=== PATIENT | male | born 1970 | race Caucasian/White ===

== ENCOUNTER 2016-10-09 09:14 | Inpatient (IN) | payer OTHER ==
--- NOTE | ~2016-10-09 | CR133 ---
[facility] A Service of [facility] RADIOLOGY TEXT RESULTS PATIENT: DARIO PERDOMO LOCATION: C3A 310-01 : 70 UNIT #: [id number] AGE: [address]: LAMAR SCHWAB MD SEX: M ORDER DR: [id number] [place] [id number] [facility]. [place], [place] [address] [id number] I MR#: [id number] Acc #: [id number] NAME: DARIO PERDOMO : 1970 SEX: M STUDY DATE/TIME: 10/09/2016 13:10 UNIT: CEDOF ROOM: 32536 STUDY DESCRIPTION: CR Forearm 2 View Rt Attending Physician: Lamar Schwab M.D. Ordering Physician: Ed Bright Albarran M.D. Primary Care Physician: No Primary Care Physician MEDICAL IMAGING REPORT This report is preliminary unless electronic signature is present EXAM Right forearm, 2 views. DATE OF EXAM 10/09/2016, 1310 hours. CLINICAL HISTORY Bilateral forearm swelling for 1 week with pain. No reported injury. COMPARISON None. FINDINGS AP and lateral views are performed. There is an angiocatheter at the right antecubital fossa with tubing overlying the forearm. The radius and ulna are normal. There is no fracture. There is diffuse subcutaneous edema throughout the visualized portions of the forearm extending into the dorsum of the hand. No foreign body seen. IMPRESSION Diffuse subcutaneous edema over the forearm and hand with no fracture or bone lesion. There is an angiocath at the right antecubital fossa with overlying tubing. No foreign body seen. Dictated by... Lacie Rowan M.D. THIS IS AN ELECTRONICALLY VERIFIED REPORT Lacie Rowan M.D. at 10/09/2016 7:09 PM Reji [facility] A Service of [facility] & [facility] RADIOLOGY TEXT RESULTS PATIENT: DARIO PERDOMO LOCATION: C3A 310-01 : 70 UNIT #: [id number] AGE: [address]: LAMAR SCHWAB MD SEX: M ORDER DR: TD: 10/09/2016 16:43 JOB #: [id number] MEDICAL IMAGING REPORT COPY
--- NOTE | ~2016-10-09 | DS ---
Unit #: [id number] #: [id number] Patient: DARIO PERDOMO [id number] [address] [place], [place] [address] [id number] I MR#: [id number] NAME: DARIO PERDOMO ROOM: 310 Age: 46 Sex: M Admission Date: 10/09/2016 : 1970 Discharge Date: 10/13/2016 Attending Physician: Janki Mondragon M.D. Primary Care Physician: Jocy Primary Care Physician DISCHARGE SUMMARY FINAL DIAGNOSIS Abscess to both forearms. CONSULT [facility]. PROCEDURE He had an I and D on 10/10/16 to bilateral wrist abscess. HOSPITAL COURSE The patient is a pleasant, 46-year-old male who basically presented with what looked abscesses to his forearms and was seen and evaluated and admitted to the ER. He had an I and D of bilateral upper extremities for wrist abscess. He was on antibiotics and vancomycin and wound culture so far grew MRSA. He was evaluated and suitable and stable for discharge and has been cleared for discharge by [facility]. MEDICATIONS ON DISCHARGE 1. Bactrim DS two tablets p.o. b.i.d. for 10 days. 2. Hydrocodone one tab p.o. every six hours p.r.n. pain. 3. Ibuprofen 600 mg p.o. q.6 hourly p.r.n. He is scheduled to follow with PCP in the next three to five days and scheduled to follow up with [facility] in about a week. He is to call the office for appointment, . Time spent coordinating discharge about 22 minutes. Dictated by... Tre Peterson/carmen TD: 10/14/2016 19:04 JOB #: [id number] Unit #: [id number] #: [id number] Patient: DARIO PERDOMO DISCHARGE SUMMARY X Magdaleno Reyez MD DISCHARGE SUMMARY
--- NOTE | ~2016-10-09 | CR132 ---
[facility] A Service of [facility] & [facility] RADIOLOGY TEXT RESULTS PATIENT: DARIO PERDOMO LOCATION: [facility] 310-01 : 70 UNIT #: [id number] AGE: [address]: LAMAR NIEVES MD SEX: M ORDER DR: [id number] [place] [id number] [facility]. [place], [place] [address] [id number] I MR#: [id number] Acc #: [id number] NAME: DARIO PERDOMO : 1970 SEX: M STUDY DATE/TIME: 10/09/2016 13:12 UNIT: [facility] ROOM: 91666 STUDY DESCRIPTION: CR Forearm 2 View Lt Attending Physician: Lamar Nieves M.D. Ordering Physician: Ed Doctor [id number] [facility] Primary Care Physician: Primary Care Physician No MEDICAL IMAGING REPORT This report is preliminary unless electronic signature is present EXAM Left forearm, 10/09/2016 13:12 hours HISTORY 46-year-old man with bilateral forearm pain and swelling. Symptoms for 1 week. No reported injury. COMPARISON None FINDINGS AP and lateral views of the left forearm demonstrate no fracture or bone lesion. There is subcutaneous edema seen distally more than proximally. This is less extensive than that seen in the right forearm. No foreign body. IMPRESSION Subcutaneous edema diffusely, slightly less than that seen on the right arm today. There is no abscess or soft tissue gas. No foreign body or fracture. Dictated by... Lacie Rowan M.D. THIS IS AN ELECTRONICALLY VERIFIED REPORT Lacie Rowan M.D. at 10/09/2016 7:09 PM CHACE/ava TD: 10/09/2016 16:28 JOB #: [id number] MEDICAL IMAGING REPORT COPY
--- NOTE | ~2016-10-09 | OR ---
Unit #: [id number] #: [id number] Patient: DARIO PERDOMO [id number] [address] [place], [place] [address] [id number] I MR#: [id number] NAME: DARIO PERDOMO ROOM: 310 Date of Procedure: 10/10/2016 Admission Date: 10/09/2016 Surgeon: Yuri Harden M.D. : 1970 Attending Physician: Janki Mondragon M.D. Primary Care Physician: Primary Care Physician No OPERATIVE REPORT PREOPERATIVE DIAGNOSIS Bilateral upper extremity wrist abscesses. POSTOPERATIVE DIAGNOSIS Bilateral upper extremity wrist abscesses. PROCEDURES PERFORMED 1. Sharp excisional debridement down to muscle fascia of right upper extremity abscess measuring 3 cm x 2 cm. 2. Sharp excisional debridement with a knife down to muscle fascia of left upper extremity abscess measuring 2 x 1 cm. ANESTHESIA General anesthesia. ESTIMATED BLOOD LOSS Minimal. IV FLUIDS 400 crystalloid. COMPLICATIONS None. INDICATIONS FOR PROCEDURE The patient is a 46-year-old, who presents with bilateral wrist abscesses secondary to IV drug abuse. He presents for excision. DESCRIPTION OF PROCEDURE The patient was taken to the operating theater, placed in a supine position. General anesthesia was induced. His upper extremities were prepped and draped. An elliptical incision was then made inclusive of the central necrosis of the abscess in the right upper extremity. This was excised down to muscle fascia. There was minimal purulence. Hemostasis was obtained with Bovie electrocautery. I irrigated and packed with Betadine. A similar excision was then accomplished on the left side. There was purulence here and this was cultured. Hemostasis was obtained with Bovie electrocautery and packed with Betadine. The patient tolerated the procedure well and sent to the recovery room in good condition. Unit #: [id number] #: [id number] Patient: DARIO PERDOMO Dictated by... Tre Brooks/julee TD: 10/11/2016 02:44 JOB #: [id number] OPERATIVE REPORT X Yuri Harden MD X PROCEDURE OPERATIVE NOTE
--- NOTE | ~2016-10-09 | HP ---
Unit #: [id number] #: [id number] Patient: DARIO PERDOMO [id number] [address] [place], [place] [address] [id number] MR#: [id number] NAME: DARIO PERDOMO ROOM: Age: 46 Sex: M Admission Date: 10/09/2016 : 1970 Attending Physician: Marleen Luevano M.D. Primary Care Physician: No Primary Care Physician HISTORY AND PHYSICAL CHIEF COMPLAINT Abscess to both forearms. HISTORY OF PRESENT ILLNESS The patient is a 46-year-old male with a history of drug abuse, only snorts. No IV drug abuse. Presented to the emergency room with worsening skin cellulitis and abscess of both forearms. The patient stated it started with a scratch and it with a small knot last Saturday and then gradually progressed. The patient used a safety pin to open the wound and purulence associated with bloody drainage. The patient noted that the drainage was turning black and is concerned about worsening abscess and presented to the emergency room. The patient stated he only snorts heroin and is scared of the IV drug abuse and never used it and never injected. The patient denies any animal bites or spider bites. The patient denies any fevers, chills, nausea, vomiting. PAST MEDICAL HISTORY 1. History of GERD. 2. Sleep apnea. PAST SURGICAL HISTORY Surgical procedure secondary to blunt trauma in 1990. ALLERGIES No known drug allergies. FAMILY HISTORY Mother positive for leukemia. SOCIAL HISTORY The patient is currently unemployed, lives with his and children. He reports that he uses tobacco daily, dipping. The patient has reported using opiates, either Lortab, Opana, OxyContin. He denies any IV drug abuse. MEDICATIONS None. REVIEW OF SYSTEMS Fourteen point review of systems was performed and only pertinent positive as described above, remaining are negative. PHYSICAL EXAMINATION GENERAL: The patient is lying on the bed, not in acute distress. Unit #: [id number] #: [id number] Patient: DARIO PERDOMO VITALS: Temperature 98.3, pulse 100, respiratory rate 15, blood pressure 132/86, sat'ing 100% at room air. HEAD: Atraumatic, normocephalic. EENT: Pupils equal, round, reacting to light and accommodation. Extraocular movements are intact. Moist mucous membranes. NECK: Supple. No JVD. LUNGS: Clear to auscultation bilaterally. No rhonchi no wheezing. HEART: Regular rate and rhythm. ABDOMEN: Soft. Positive bowel sounds. EXTREMITIES: Bilateral forearm with abscess and cellulitis and with streaking lymphangitis up to the elbow with purulent drainage with black necrosis of the skin. No cyanosis, no clubbing, no IV drug maps. NEUROLOGICAL: Alert, awake, oriented. No gross focal motor deficits. PSYCH: Mood and affect appropriate. DIAGNOSTIC STUDIES LABORATORY DATA: Glucose 90, BUN 10, creatinine 1, sodium 135, potassium 3. Chloride 101, bicarb 25, calcium 8.6, AST 23, ALT 20, alkaline phosphatase 74, WBC 14.3, hemoglobin 11.8, hematocrit 35.3, platelets 299. Neutrophils 74.9. Urine tox is positive for amphetamines and opiates. ASSESSMENT AND PLAN 1. Bilateral forearm abscess. 2. Gastroesophageal reflux disease. 3. Drug abuse: No intravenous drug abuse, only snoring. Plan is to admit patient as an inpatient with telemetry. Continue with IV antibiotics with vancomycin and will add Unasyn. Check x-rays of bilateral forearms to rule out subcutaneous gas or fasciitis. Will have LSA to see the patient for probable I and D of the bilateral arms. Check the wound cultures and MRSA screen. Further recommendations will follows as more lab results are available. Dictated by Tre Cordova TD: 10/09/2016 13:07 JOB #: [id number] HISTORY AND PHYSICAL X X HISTORY AND PHYSICAL
[2016-10-09 09:56] LABS: BASOPHIL# 0.1 X10e3 (0-0.3); BASOPHIL% 0.5 % (0-2.5); DIFF IND NO; EOSINOPHIL# 0.3 X10e3 (0-0.7); HEMATOCRIT 35.3 % (38.0-50.0); HEMOGLOBIN 11.8 gm/dL (13.0-16.0); LYMPHOCYTE% 14.2 % (17.0-45.0); MEAN CELL VOLUME 83.4 FL (83-96); MEAN CORPUSCULAR HEMOGLOBIN 27.9 PG (28-34); MEAN CORPUSCULAR HGB CONC 33.4 g/dL (30-36); MEAN PLATELET VOLUME 7.1 FL (6.5-11.5); MONOCYTE# 1.2 X10e3 (0-1.0); MONOCYTE% 8.4 % (3.0-12.0); NEUTROPHIL# 10.7 X10e3 (1.5-7.1); NEUTROPHIL% 74.9 % (40-75); PLATELET COUNT 299 X10e3 (140-420); RED BLOOD COUNT 4.24 X10e (3.90-5.60); RED CELL DISTRIBUTION WIDTH 13.6 % (11.0-15.5); WHITE BLOOD COUNT 14.3 X10e3 (4.0-10.5)
[2016-10-09 10:33] LABS: ALKALINE PHOSPHATASE 74 U/L (32-92); ALT (SGPT) 20 U/L (10-40); AST (SGOT) 23 U/L (10-42); BILIRUBIN, DIRECT 0.1 mg/dL (0.0-0.2); BILIRUBIN,INDIRECT 0.2 mg/dL (0.0-0.9); BILIRUBIN,TOTAL 0.3 mg/dL (0.2-2.0); BLOOD UREA NITROGEN 10 mg/dL (9-23); CALCIUM SERUM 8.6 mg/dL (8.4-10.2); CARBON DIOXIDE 25 mmol/L (22-31); CHLORIDE 101 mmol/L (100-111); GLOM FILT RATE Estimated ABOVE60 mL/min (>60); GLUCOSE FASTING 90 mg/dL (70-110); PROTEIN TOTAL SERUM 7.2 g/dL (6.0-8.3); SODIUM 135 mmol/L (135-145)
[2016-10-09 12:12] LABS: AMPHETAMINE POS (NEG); BARBITURATES NEG (NEG); BENZODIAZEPINES NEG (NEG); COCAINE NEG (NEG); MARIJUANA NEG (NEG); OPIATES POS (NEG); TRICYCLIC ANTIDEPRESSANTS NEG (NEG); U METHADONE NEG (NEG)
[2016-10-09] MEDS ORDERED: NO MEDICATIONS (17:37)
[2016-10-10 07:09] LABS: BLOOD UREA NITROGEN 8 mg/dL (9-23); BUN/CREATININE RATIO 11.42; CALCIUM SERUM 8.1 mg/dL (8.4-10.2); CARBON DIOXIDE 26 mmol/L (22-31); CHLORIDE 105 mmol/L (100-111); CREATININE SERUM 0.7 mg/dL (0.6-1.4); GLOM FILT RATE Estimated ABOVE60 mL/min (>60); GLUCOSE FASTING 118 mg/dL (70-110); POTASSIUM 3.5 mmol/L (3.5-5.1); SODIUM 139 mmol/L (135-145)
[2016-10-11 07:16] LABS: HEMATOCRIT 34.5 % (38.0-50.0); HEMOGLOBIN 11.4 gm/dL (13.0-16.0); MEAN CELL VOLUME 83.4 FL (83-96); MEAN CORPUSCULAR HEMOGLOBIN 27.6 PG (28-34); MEAN CORPUSCULAR HGB CONC 33.1 g/dL (30-36); MEAN PLATELET VOLUME 7.3 FL (6.5-11.5); RED BLOOD COUNT 4.13 X10e (3.90-5.60); RED CELL DISTRIBUTION WIDTH 13.4 % (11.0-15.5); WHITE BLOOD COUNT 8.5 X10e3 (4.0-10.5)
[2016-10-11 08:03] LABS: BLOOD UREA NITROGEN 7 mg/dL (9-23); CALCIUM SERUM 8.1 mg/dL (8.4-10.2); CARBON DIOXIDE 24 mmol/L (22-31); CHLORIDE 110 mmol/L (100-111); CREATININE SERUM 0.7 mg/dL (0.6-1.4); GLOM FILT RATE Estimated ABOVE60 mL/min (>60); GLUCOSE FASTING 113 mg/dL (70-110); POTASSIUM 3.6 mmol/L (3.5-5.1); SODIUM 141 mmol/L (135-145)
[2016-10-12 08:10] LABS: HEMATOCRIT 33.7 % (38.0-50.0); HEMOGLOBIN 11.2 gm/dL (13.0-16.0); MEAN CELL VOLUME 84.1 FL (83-96); MEAN CORPUSCULAR HEMOGLOBIN 27.9 PG (28-34); MEAN CORPUSCULAR HGB CONC 33.2 g/dL (30-36); MEAN PLATELET VOLUME 7.4 FL (6.5-11.5); RED BLOOD COUNT 4.01 X10e (3.90-5.60); RED CELL DISTRIBUTION WIDTH 13.2 % (11.0-15.5); WHITE BLOOD COUNT 8.7 X10e3 (4.0-10.5)
[2016-10-12 08:40] LABS: BLOOD UREA NITROGEN 11 mg/dL (9-23); BUN/CREATININE RATIO 13.75; CALCIUM SERUM 8.3 mg/dL (8.4-10.2); CARBON DIOXIDE 25 mmol/L (22-31); CHLORIDE 110 mmol/L (100-111); CREATININE SERUM 0.8 mg/dL (0.6-1.4); GLOM FILT RATE Estimated ABOVE60 mL/min (>60); GLUCOSE FASTING 111 mg/dL (70-110); POTASSIUM 3.9 mmol/L (3.5-5.1); SODIUM 141 mmol/L (135-145)
[2016-10-13] MEDS ORDERED: BACTRIM DS TABL1 TA1 PO ×2 (08:40→08:41)
[2016-10-13] MEDS ORDERED: NORCO1 TAB 10/3 PO (08:42)
[2016-10-13] MEDS ORDERED: IBUPROFEN600 MG PO (08:42)
== END 2016-10-13 11:46 | disposition home or self-care (01) | DRG 572 ==
LOC: CED 09:14 → CEDOF 12:22 → C3A PCU 16:45
PROVIDERS: Emergency Medicine; Internal Medicine; Surgery
PROC: 0JBG0ZZ Excision of Right Lower Arm Subcutaneous Tissue and Fascia, Open Approach (ICD-10-PCS; 2016-10-10)
PROC: 0JBH0ZZ Excision of Left Lower Arm Subcutaneous Tissue and Fascia, Open Approach (ICD-10-PCS; principal; 2016-10-10 09:30)
DX: L02.414 Cutaneous abscess of left upper limb (principal); F11.10 Opioid abuse, uncomplicated; L02.413 Cutaneous abscess of right upper limb; K21.9 Gastro-esophageal reflux disease without esophagitis; F17.290 Nicotine dependence, other tobacco product, uncomplicated; B95.62 Methicillin resistant Staphylococcus aureus infection as the cause of diseases classified elsewhere; G47.30 Sleep apnea, unspecified; L03.114 Cellulitis of left upper limb; L03.113 Cellulitis of right upper limb
CPT/HCPCS: 36415; 73090; 80048; 80076; 80202; 80307; 85025; 85027; 87040; 87070; 87075; 87077; 87186; 87205; 94760; 96361; 96365; 96369; 99285; J0295; J1650; J1885; J2250; J2405; J3010; J3370